=== PATIENT | female | born 1985 | race Caucasian/White ===

== ENCOUNTER 2019-06-30 12:18 | Emergency (ER) | payer OTHER ==
[~2019-06-30] VITALS: Ht 165.1 cm; Wt 61.2 kg
[~2019-06-30 12:18] MED LIST: ACETAMINOPHEN325 M1 PO; CIPROFLOXACIN500 M1 PO; CLEOCIN HCL150 MG PO; CLEOCIN HCL300 MG PO; DOXYCYCLINE 10100 MG PO; ERYTHROMYCIN250 MG PO; GABAPENTIN 100100 MG; IBUPROFEN 200200 M1 PO; IBUPROFEN 400400 M1 PO; IBUPROFEN 800800 M1 PO; LITHATE20 MG; MINOCYCLINE HC100 M2 PO; NOHOMEMEDICATIONS; NORCO 5-325 TA1 EACH PO; ULTRAM 50MG TAB50 MG PO; VALIUM5 MG PO; VICODIN 5-5001 EACH PO
[2019-06-30 12:48] LABS: ABSOLUTE EOSINOPHILS 0.1 thou/uL (0.0-0.7); ABSOLUTE LYMPHOCYTES 1.4 thou/uL (0.8-5.3); ABSOLUTE MONOCYTES 0.4 thou/uL (0.0-1.2); ABSOLUTE NEUTROPHILS 3.6 thou/uL (1.6-8.1); BASOPHILS 0.8 %; EOSINOPHILS 2.5 %; HEMATOCRIT 41.2 % (37.0-47.0); HEMOGLOBIN 14.2 gm/dL (12.0-15.0); LYMPHOCYTES 25.1 %; MCH 30.8 pg (26.0-34.0); MCHC 34.3 g/dL (28.0-37.0); MCV 89.6 fL (80.0-100.0); MONOCYTES 6.7 %; MPV 8.2 fl. (7.2-11.1); NUCLEATED RBCS 0 /100WBC; PLATELET COUNT* 269 thou/uL (150-400); POLYS 64.9 %; RDW-CV 13.2 % (10.5-14.5); WBC 5.6 thou/uL (4.0-11.0)
[2019-06-30 13:04] LABS: CALCIUM 8.8 mg/dL (8.5-10.1); CREATININE 0.9 mg/dL (0.6-1.3)
[2019-06-30 13:09] LABS: ALBUMIN 3.4 g/dL (3.4-5.0); TOTAL BILIRUBIN 0.5 mg/dL (<0.1-1.0); TOTAL PROTEIN 6.7 g/dL (6.4-8.2)
--- NOTE | 2019-06-30 14:01 | EKG ---
[place] [address] ELECTROCARDIOGRAM REPORT Name: MAGGYLUANNE Nitesh Room: [facility]#: [id number] Admission: 06/30/19 Attend Phys: Discharge: Date of : 81 Report #: [id number] THIS REPORT FOR: //name// [facility] ED Test Date: 2019-06-30 Test Time: 12:45:21 Pat Name: LUANNE WINTER Department: Room: Gender: F [employer]: : 1985 Requested By: Sophie Hammond Order Number: [id number] MD: Antelmo Polo Measurements Intervals [place] Rate: 59 P: 69 [place]: 151 QRS: 59 QRSD: 81 T: 63 QT: 428 QTc: 424 Interpretive Statements Sinus rhythm Compared to ECG 03/12/2013 23:32:50 Sinus tachycardia no longer present Electronically Signed On 06-30-2019 14:00:58 [employer]LE[employer] by Antelmo Polo [email or web address] <ELECTRONICALLY SIGNED> By: Antelmo Polo MD, [facility] 06/30/19 1400 1245 1245 Antelmo Polo MD, FACC /EPI
[2019-06-30 14:07] LABS: URINE BILIRUBIN NEGATIVE (Negative); URINE BLOOD NEGATIVE (Negative); URINE CLARITY CLEAR; URINE COLOR YELLOW; URINE GLUCOSE-RANDOM NEGATIVE (Negative); URINE KETONES NEGATIVE (Negative); URINE LEUKOCYTES-REFLEX 1+ (Negative); URINE PROTEIN NEGATIVE (Negative); URINE UROBILINOGEN 0.2 E.U./dl (0.2-1.0)
[2019-06-30 14:12] LABS: URINE NITRITE-REFLEX POSITIVE (Negative)
[2019-06-30] MEDS ORDERED: CARAFATE1 GM/10 ML PO (14:16)
[2019-06-30] MEDS ORDERED: ONDANSETRON HCL4 M2 PO (14:16)
[2019-06-30] MEDS ORDERED: BENTYL 20 MG TA20 M1 PO (14:16)
[2019-06-30 14:20] LABS: SQUAMOUS 4-10 Moderate /LPF (0-3); WBC CLUMPS Few (None Seen)
[2019-06-30 14:21] LABS: BACTERIA-REFLEX >30 Many /HPF (None Seen); MUCUS 0-3 Light strn/LPF (None Seen); URINE RBC None Seen /HPF (0-2)
[2019-06-30 14:22] LABS: CASTS None Seen /LPF (None Seen); CRYSTALS None Seen /LPF (None Seen)
[2019-06-30 14:22] LABS: AMP/METHAMP POSITIVE (Negative); BARBITURATES Negative (Negative); BENZODIAZEPINES Negative (Negative); COCAINE Negative (Negative); METHADONE Negative (Negative); OPIATES POSITIVE (Negative); PCP Negative (Negative); THC Negative (Negative)
[2019-06-30 14:30] VITALS: BP 101/46
== END 2019-06-30 14:30 | disposition home or self-care (01) ==
LOC: M.ERS 12:18
PROVIDERS: Nurse Practitioner Family
DX: N83.202 Unspecified ovarian cyst, left side (principal); N83.201 Unspecified ovarian cyst, right side; F31.9 Bipolar disorder, unspecified; F17.210 Nicotine dependence, cigarettes, uncomplicated; Z98.51 Tubal ligation status; Z98.890 Other specified postprocedural states; Z88.0 Allergy status to penicillin; Z88.1 Allergy status to other antibiotic agents; Z79.899 Other long term (current) drug therapy